=== PATIENT | female | born 1955 | race Caucasian/White ===

== ENCOUNTER 2016-07-12 14:52 | Inpatient (IN) | payer OTHER ==
[~2016-07-12] VITALS: Ht 170.2 cm; Wt 71.1 kg
[~2016-07-12 14:52] MED LIST: CEFAZOLIN 1,000 MG ONE; DEXAMETHASONE 4 MG/ML, 1ML ONE; GLYCOPYRROLATE 0.2MG/1ML ONE; NEOSTIGMINE 1 MG/ML, 10ML ONE; ONDANSETRON 2MG/ML, 2ML ONE; PROPOFOL 10 MG/ML, 20ML ONE; ROCURONIUM 10 MG/ML ONE; SUCCINYLCHOLINE 20 MG/ML, 10ML ONE
[2016-07-12] MEDS ORDERED: FENTANYL PF 100 MCG/2ML ONE ×2 (15:29→21:35)
[2016-07-12] MEDS ORDERED: PLEASE ENTER HEIGHT AND WEIGHT MC SCH (15:30)
[2016-07-12] MEDS ORDERED: FENTANYL PF 100 MCG/2ML IV ONE (15:30)
[2016-07-12] MEDS ORDERED: SODIUM CHLORIDE 0.9% 1,000ML IVBOLUS ONE (15:30)
[2016-07-12] MEDS ORDERED: PLEASE ENTER ALLERGIES MC SCH ×2 (15:30)
[2016-07-12 15:48] LABS: BLOOD UREA NITROGEN 7 mg/dL (7-18)
[2016-07-12 16:03] LABS: POLYCHROMASIA 1+
[2016-07-12] MEDS ORDERED: LABETALOL 5MG/ML, 20ML IV PRN ×2 (16:30→21:30)
[2016-07-12] MEDS ORDERED: ONDANSETRON 2MG/ML, 2ML IVP PRN (16:30)
[2016-07-12] MEDS ORDERED: POLYETHYLENE GLYCOL 17 GM PACKET PO PRN (16:30)
[2016-07-12] MEDS ORDERED: ONDANSETRON ODT 4 MG PO PRN (16:30)
[2016-07-12] MEDS ORDERED: MORPHINE SULFATE 4 MG/ML, 1ML IVPush PRN (16:30)
[2016-07-12 18:15] VITALS: BP 147/73
[2016-07-12] MEDS ORDERED: NEOSPORIN OINT, 15GM ONE (19:08)
[2016-07-12] MEDS ORDERED: MAGNESIUM SULFATE PMX 2GM/50ML 50 ML IV ONE (19:30)
[2016-07-12] MEDS ORDERED: FENTANYL PF 250 MCG/5ML ONE (19:45)
[2016-07-12] MEDS ORDERED: MIDAZOLAM 1 MG/ML, 2ML ONE (19:46)
[2016-07-12] MEDS ORDERED: OXYcodone 5 MG/5 ML ORAL.SOL UDC ONE (21:23)
[2016-07-12] MEDS ORDERED: FENTANYL PF 100 MCG/2ML IV PRN (21:30)
[2016-07-12] MEDS ORDERED: ONDANSETRON 2MG/ML, 2ML IVPush PRN (21:30)
[2016-07-12] MEDS ORDERED: METOPROLOL 1 MG/ML, 5ML IV PRN (21:30)
[2016-07-12] MEDS ORDERED: PROMETHAZINE 25 MG/ML, 1ML IV PRN (21:30)
[2016-07-12] MEDS ORDERED: ALBUTEROL SULFATE 2.5 MG/3 ML NPPB PRN (21:30)
[2016-07-12] MEDS ORDERED: hydrALAzine 20 MG/ML, 1ML IV PRN (21:30)
[2016-07-12] MEDS ORDERED: ACETAMINOPHEN 325 MG TABLET PO PRN (21:30)
[2016-07-12] MEDS ORDERED: OXYcodone 5 MG/5 ML ORAL.SOL UDC PO PRN (21:30)
[2016-07-12] MEDS ORDERED: EPHEDRINE 50 MG/ML, 1ML IVPush PRN (21:30)
[2016-07-12] MEDS ORDERED: HYDROmorphone 1 MG/ML, 1ML IV PRN (21:30)
[2016-07-12] MEDS ORDERED: MEPERIDINE/PF 25MG/0.5ML IVPush PRN (21:30)
[2016-07-12] MEDS ORDERED: MIDAZOLAM 1 MG/ML, 2ML IV PRN (21:30)
[2016-07-12] MEDS: D5%-0.45NACL+KCL 20MEQ 1,000 ML IV SCH (22:51)
[2016-07-12] MEDS: POTASSIUM CHLORIDE 20 MEQ, MAGNESIUM SULFATE 1 GM, FOLIC ACID 1 MG, THIAMINE 100 MG, MV... IV SCH (22:52)
[2016-07-12] MEDS: FAMOTIDINE 20 MG/2 ML IV SCH (23:00)
[2016-07-13 02:10] VITALS: BP 125/64
[2016-07-13] MEDS: HYDROcodone/APAP 5/325 TABLET PO PRN ×6 (02:46→23:36)
[2016-07-13 02:49] VITALS: BP 140/85
[2016-07-13] MEDS: CEFAZOLIN PMX 1GM/50ML 50 ML IVPB SCH ×2 (04:08→12:08)
[2016-07-13 06:27] LABS: BLOOD UREA NITROGEN 8 mg/dL (7-18)
[2016-07-13 06:30] VITALS: BP 119/64
[2016-07-13 06:31] LABS: ASPARTATE AMINO TRANSFERASE 31 U/L (15-37)
[2016-07-13] MEDS: FAMOTIDINE 20 MG/2 ML IV SCH ×2 (08:16→19:52)
[2016-07-13] MEDS: ENOXAPARIN 40 MG/0.4 ML SQ SCH (08:16)
[2016-07-13] MEDS ORDERED: LORazepam 2 MG/ML, 1ML IV PRN ×5 (09:30)
[2016-07-13] MEDS ORDERED: NICOTINE 21 MG/24 HR PATCH.TD24 TD ONE (09:30)
[2016-07-13] MEDS ORDERED: LORazepam 0.5MG TABLET PO PRN (09:30)
[2016-07-13] MEDS ORDERED: LORazepam 1MG TABLET PO PRN ×4 (09:30)
[2016-07-13 10:26] LABS: HEMOGLOBIN 13.9 g/dL (11.7-16.4)
[2016-07-13 10:29] LABS: HEMOGLOBIN 10.3 g/dL (11.7-16.4)
[2016-07-13 13:55] VITALS: BP 116/63
[2016-07-13] MEDS: D5%-0.45NACL+KCL 20MEQ 1,000 ML IV SCH (14:04)
[2016-07-13 15:57] VITALS: BP 127/66
[2016-07-13 18:53] VITALS: BP 116/67
[2016-07-13] MEDS: POTASSIUM CHLORIDE 20 MEQ, MAGNESIUM SULFATE 1 GM, FOLIC ACID 1 MG, THIAMINE 100 MG, MV... IV SCH (19:52)
[2016-07-13] MEDS: SENNA/DOCUSATE TABLET PO SCH (19:52)
[2016-07-14 01:32] VITALS: BP 131/70
[2016-07-14] MEDS: D5%-0.45NACL+KCL 20MEQ 1,000 ML IV SCH ×3 (03:51→16:20)
[2016-07-14] MEDS: HYDROcodone/APAP 5/325 TABLET PO PRN ×5 (03:51→20:56)
[2016-07-14 05:30] LABS: HEMOGLOBIN 8.8 g/dL (11.7-16.4)
[2016-07-14 05:32] LABS: BLOOD UREA NITROGEN 5 mg/dL (7-18)
[2016-07-14 05:35] LABS: ASPARTATE AMINO TRANSFERASE 20 U/L (15-37)
[2016-07-14 06:45] VITALS: BP 128/76
[2016-07-14] MEDS: FAMOTIDINE 20 MG/2 ML IV SCH (09:37)
[2016-07-14] MEDS: SENNA/DOCUSATE TABLET PO SCH ×2 (09:37→20:56)
[2016-07-14] MEDS: ENOXAPARIN 40 MG/0.4 ML SQ SCH (09:37)
[2016-07-14 15:57] VITALS: BP 139/79
[2016-07-14 19:35] VITALS: BP 121/65
[2016-07-14] MEDS: FAMOTIDINE 20 MG TABLET PO SCH (20:56)
[2016-07-14] MEDS: POTASSIUM CHLORIDE 20 MEQ, MAGNESIUM SULFATE 1 GM, FOLIC ACID 1 MG, THIAMINE 100 MG, MV... IV SCH (22:09)
[2016-07-15 02:00] VITALS: BP 134/69
[2016-07-15] MEDS: HYDROcodone/APAP 5/325 TABLET PO PRN ×4 (02:45→14:38)
[2016-07-15] MEDS: D5%-0.45NACL+KCL 20MEQ 1,000 ML IV SCH ×2 (06:21→14:38)
[2016-07-15 07:24] VITALS: BP 124/62
[2016-07-15] MEDS ORDERED: NICOTINE 21 MG/24 HR PATCH.TD24 TD SCH (08:41)
[2016-07-15] MEDS ORDERED: FOLIC ACID 1 MG TABLET PO SCH (08:42)
[2016-07-15] MEDS ORDERED: THIAMINE 100MG TABLET PO SCH (08:43)
[2016-07-15] MEDS: FAMOTIDINE 20 MG TABLET PO SCH (09:10)
[2016-07-15] MEDS: SENNA/DOCUSATE TABLET PO SCH (09:10)
[2016-07-15] MEDS: ENOXAPARIN 40 MG/0.4 ML SQ SCH (09:11)
[2016-07-15] MEDS ORDERED: THIA100T6 PO (13:26)
[2016-07-15] MEDS ORDERED: THIA100T10 PO (13:26)
[2016-07-15] MEDS ORDERED: FOLI-17 PO (13:26)
[2016-07-15] MEDS ORDERED: ENOX40SY4 SQ (13:26)
[2016-07-15] MEDS ORDERED: OMEP-110 PO (13:28)
[2016-07-15] MEDS ORDERED: ASPI-621 PO (13:28)
[2016-07-15 13:55] VITALS: BP 126/75
[2016-07-15 15:17] VITALS: BP 137/82
[2016-07-15] MEDS ORDERED: HYDR-3138 PO (16:00)
== END 2016-07-15 16:10 | disposition home or self-care (01) | DRG 481 ==
LOC: ED 15:31 → EDIP 15:46 → EDSEX 15:46 → 4NOR 18:10
PROVIDERS: ADMIT Hospitalist; ATTEND Hospitalist
PROC: 0QH636Z Insertion of Intramedullary Internal Fixation Device into Right Upper Femur, Percutaneous Approach (ICD-10-PCS; principal; 2016-07-13)
PROC: 0QS6XZZ Reposition Right Upper Femur, External Approach (ICD-10-PCS; 2016-07-13)
PROC: 2W6LXZZ Traction of Right Lower Extremity (ICD-10-PCS; 2016-07-13)
DX: S72.141A Displaced intertrochanteric fracture of right femur, initial encounter for closed fracture (principal); E46 Unspecified protein-calorie malnutrition; F10.10 Alcohol abuse, uncomplicated; R73.9 Hyperglycemia, unspecified; E83.42 Hypomagnesemia; D72.829 Elevated white blood cell count, unspecified; W18.31XA Fall on same level due to stepping on an object, initial encounter; F17.200 Nicotine dependence, unspecified, uncomplicated; D75.89 Other specified diseases of blood and blood-forming organs; Z68.24 Body mass index [BMI] 24.0-24.9, adult; Z79.82 Long term (current) use of aspirin; Y93.K1 Activity, walking an animal; Y92.69 Other specified industrial and construction area as the place of occurrence of the external cause; Y99.8 Other external cause status
CPT/HCPCS: 36415; 71010; 76000; 80048; 80053; 82040; 82607; 82746; 83735; 84439; 84443; 85025; 85610; 93005; 96361; 96374; C1713; J0690; J1100; J1650; J2250; J2405; J2704; J2710; J3010; J3411; J3475; J3480; J3490; J7042; J0330; J7030; S0028